=== PATIENT | male | born 1960 | race African-American/Black ===

== ENCOUNTER 2023-01-11 07:50 | Day surgery (SDC) | payer OTHER ==
[2023-01-07 13:37] VITALS: BMI 27.8
[2023-01-11] MEDS ORDERED: PROPOFOL 80 ML ONE (08:06)
[2023-01-11] MEDS ORDERED: LIDOCAINE HCL/PF 2% SDV 5ML VIAL ONE (08:07)
[2023-01-11 10:02] VITALS: PULSE 70; TEMP 96.9
[2023-01-11 10:08] VITALS: BP 124/78; RESP 19
== END 2023-01-11 10:14 | disposition home or self-care (01) ==
LOC: FASU-ENDO 07:50
PROVIDERS: ATTEND Internal Medicine Gastroenterology
PROC: 0DBL8ZX Excision of Transverse Colon, Via Natural or Artificial Opening Endoscopic, Diagnostic (ICD-10-PCS; 2023-01-11)
PROC: 0DBN8ZX Excision of Sigmoid Colon, Via Natural or Artificial Opening Endoscopic, Diagnostic (ICD-10-PCS; 2023-01-11)
PROC: 0DBH8ZX Excision of Cecum, Via Natural or Artificial Opening Endoscopic, Diagnostic (ICD-10-PCS; principal; 2023-01-11 09:25)
DX: Z12.11 Encounter for screening for malignant neoplasm of colon (principal); D12.0 Benign neoplasm of cecum; K63.5 Polyp of colon; K57.30 Diverticulosis of large intestine without perforation or abscess without bleeding
CPT/HCPCS: 88305-TC; 88342-TC